=== PATIENT | female | born 1950 | race Caucasian/White ===

== ENCOUNTER 2018-09-29 02:14 | Inpatient (IN) | payer MEDICARE ==
[2018-09-29] MEDS: ONDANSETRON 4 MG INJ IV ×2 (02:47→04:04)
[2018-09-29] MEDS: morphine 4 MG/ML VIAL IV (02:47)
[2018-09-29 02:49] LABS: ADD MAN DIFF? NO
[2018-09-29 02:50] LABS: BASOPHILS % 1.2 % (0.0-2.0); EOSINOPHILS # 0.1 10^3/ul (0.0-0.5); EOSINOPHILS % 2.8 % (0.0-7.0); HEMATOCRIT 36.8 % (37.0-47.0); HEMOGLOBIN 11.7 g/dl (12.0-16.0); LYMPHOCYTES # 1.6 10^3/ul (0.8-2.9); MEAN CORPUSCULAR HEMOGLOBIN 27.4 pg (29.0-33.0); MEAN CORPUSCULAR HGB CONC 31.8 g/dl (32.0-37.0); MEAN CORPUSCULAR VOLUME 86.2 fl (82.0-101.0); MEAN PLATELET VOLUME 9.5 fl (7.4-10.4); MONOCYTE # 0.4 10^3/ul (0.3-0.9); MONOCYTES % 11.7 % (0.0-11.0); NEUTROPHIL # 1.1 10^3/ul (1.6-7.5); PLATELET COUNT 261 10^3/UL (140-415); RED BLOOD COUNT 4.27 10^6/ul (4.20-5.40); RED CELL DISTRIBUTION WIDTH 15.7 % (11.5-14.5)
[2018-09-29 02:50] LABS: WHITE BLOOD COUNT 3.3 10^3/ul (4.8-10.8)
[2018-09-29 03:10] LABS: INR 0.84; PROTIME 11.6 Sec (11.9-14.9); PT RATIO 0.9
[2018-09-29 03:14] LABS: ALANINE AMINOTRANSFERASE 70 IU/L (13-69); ALBUMIN 3.8 g/dl (3.3-4.9); ALBUMIN/GLOBULIN RATIO 1.15; ALKALINE PHOSPHATASE 142 IU/L (42-121); ANION GAP 7 (5-13); ASPARTATE AMINO TRANSFERASE 42 IU/L (15-46); BILIRUBIN,INDIRECT 0.2 mg/dl (0-1.1); BILIRUBIN,TOTAL 0.2 mg/dl (0.2-1.3); BLOOD UREA NITROGEN 17 mg/dl (7-20); CARBON DIOXIDE 27 mmol/L (21-31); CHLORIDE 108 mmol/L (97-110); CREATININE 0.82 mg/dl (0.44-1.00); Estimated GFR > 60 mL/min (>60); GLUCOSE 92 mg/dl (70-220); POTASSIUM 4.2 mmol/L (3.5-5.1); SODIUM 142 mmol/L (135-144); TOTAL PROTEIN 7.1 g/dl (6.1-8.1)
[2018-09-29 03:24] LABS: TROPONIN-I < 0.012 ng/ml (0.000-0.120)
[2018-09-29] MEDS: KETAMINE HCL (50 MG/ML) 1ml syringe IV (04:05)
[2018-09-29] MEDS: LORAZEPAM 2 MG INJ IV ×3 (04:35→23:52)
[2018-09-29] MEDS ORDERED: ONDANSETRON 4 MG INJ IV (06:00)
[2018-09-29] MEDS ORDERED: ACETAMINOPHEN 325 MG TAB PO ×2 (06:00)
[2018-09-29] MEDS: HYDROCODONE/APAP (5/325) TAB PO ×4 (06:26→23:00)
[2018-09-29] MEDS: HYDROmorphONE 0.5 MG/0.5 ML SYG IV ×4 (07:49→21:31)
[2018-09-29] MEDS: ENOXAPARIN 40 MG/0.4 ML SYG SC (09:08)
[2018-09-29] MEDS: SOD CHLORIDE 0.9% 1,000 ML IV (15:26)
[2018-09-30 03:33] LABS: AMPHETAMINE/METHAMPHETAMINE Negative (NEGATIVE); BARBITURATES Negative (NEGATIVE); CANNABINOIDS Negative (NEGATIVE); COCAINE Negative (NEGATIVE)
[2018-09-30 03:34] LABS: BENZODIAZEPINES Positive (NEGATIVE); OPIATES Positive (NEGATIVE)
[2018-09-30] MEDS: HYDROmorphONE 0.5 MG/0.5 ML SYG IV ×4 (04:30→19:57)
[2018-09-30 05:40] LABS: ADD MAN DIFF? NO
[2018-09-30 05:46] LABS: BASOPHILS % 1.2 % (0.0-2.0); EOSINOPHILS # 0.1 10^3/ul (0.0-0.5); EOSINOPHILS % 2.1 % (0.0-7.0); HEMATOCRIT 31.7 % (37.0-47.0); HEMOGLOBIN 10.2 g/dl (12.0-16.0); LYMPHOCYTES # 1.5 10^3/ul (0.8-2.9); LYMPHOCYTES % 44.6 % (15.0-51.0); MEAN CORPUSCULAR HEMOGLOBIN 27.9 pg (29.0-33.0); MEAN CORPUSCULAR HGB CONC 32.2 g/dl (32.0-37.0); MEAN CORPUSCULAR VOLUME 86.8 fl (82.0-101.0); MEAN PLATELET VOLUME 9.8 fl (7.4-10.4); MONOCYTE # 0.4 10^3/ul (0.3-0.9); MONOCYTES % 11.9 % (0.0-11.0); NEUTROPHIL # 1.3 10^3/ul (1.6-7.5); NEUTROPHILS % 40.2 % (39.0-77.0); PLATELET COUNT 244 10^3/UL (140-415); RED BLOOD COUNT 3.65 10^6/ul (4.20-5.40); RED CELL DISTRIBUTION WIDTH 15.7 % (11.5-14.5)
[2018-09-30 05:46] LABS: WHITE BLOOD COUNT 3.3 10^3/ul (4.8-10.8)
[2018-09-30 06:24] LABS: ALANINE AMINOTRANSFERASE 61 IU/L (13-69); ALBUMIN 3.1 g/dl (3.3-4.9); ALBUMIN/GLOBULIN RATIO 1.24; ALKALINE PHOSPHATASE 116 IU/L (42-121); ANION GAP 7 (5-13); ASPARTATE AMINO TRANSFERASE 37 IU/L (15-46); BILIRUBIN,INDIRECT 0.2 mg/dl (0-1.1); BILIRUBIN,TOTAL 0.2 mg/dl (0.2-1.3); BLOOD UREA NITROGEN 15 mg/dl (7-20); CALCIUM 9.7 mg/dl (8.4-10.2); CARBON DIOXIDE 28 mmol/L (21-31); CHLORIDE 107 mmol/L (97-110); CHOL/HDL RATIO 4.8 RATIO; CHOLESTEROL 202 mg/dl (100-200); CREATININE 0.82 mg/dl (0.44-1.00); Estimated GFR > 60 mL/min (>60); GLUCOSE 92 mg/dl (70-220); HDL CHOLESTEROL 42 mg/dl (35-98); LDL CHOLESTEROL,CALCULATED 128 mg/dl; MAGNESIUM 1.8 mg/dl (1.7-2.5); POTASSIUM 4.2 mmol/L (3.5-5.1); SODIUM 142 mmol/L (135-144); TOTAL PROTEIN 5.6 g/dl (6.1-8.1); TRIGLYCERIDES 159 mg/dl (0-149)
[2018-09-30] MEDS: HYDROCODONE/APAP (5/325) TAB PO ×3 (06:40→18:08)
[2018-09-30 08:22] LABS: HEMOGLOBIN A1C 5.2 % (0-5.9)
[2018-09-30] MEDS: ENOXAPARIN 40 MG/0.4 ML SYG SC (08:37)
[2018-09-30] MEDS: LORAZEPAM 2 MG INJ IV (11:12)
[2018-09-30] MEDS ORDERED: BACLOFEN 10 MG TAB (19:51)
[2018-09-30] MEDS: BACLOFEN 10 MG TAB PO (20:00)
[2018-10-01] MEDS: HYDROCODONE/APAP (5/325) TAB PO ×4 (00:09→17:49)
[2018-10-01] MEDS: HYDROmorphONE 0.5 MG/0.5 ML SYG IV ×4 (08:10→20:54)
[2018-10-01] MEDS: BACLOFEN 10 MG TAB PO ×3 (08:10→20:53)
[2018-10-01] MEDS: ENOXAPARIN 40 MG/0.4 ML SYG SC (08:11)
[2018-10-01] MEDS: NACL 0.9% 3 ML SYG IV (20:54)
[2018-10-02 05:33] LABS: ADD MAN DIFF? NO
[2018-10-02 05:35] LABS: WHITE BLOOD COUNT 3.8 10^3/ul (4.8-10.8)
[2018-10-02 05:35] LABS: BASOPHILS % 0.8 % (0.0-2.0); EOSINOPHILS # 0.1 10^3/ul (0.0-0.5); EOSINOPHILS % 2.7 % (0.0-7.0); HEMATOCRIT 33.1 % (37.0-47.0); HEMOGLOBIN 10.9 g/dl (12.0-16.0); LYMPHOCYTES # 1.4 10^3/ul (0.8-2.9); MEAN CORPUSCULAR HGB CONC 32.9 g/dl (32.0-37.0); MEAN CORPUSCULAR VOLUME 85.1 fl (82.0-101.0); MEAN PLATELET VOLUME 9.4 fl (7.4-10.4); MONOCYTE # 0.4 10^3/ul (0.3-0.9); MONOCYTES % 11.7 % (0.0-11.0); NEUTROPHIL # 1.8 10^3/ul (1.6-7.5); NEUTROPHILS % 46.5 % (39.0-77.0); PLATELET COUNT 283 10^3/UL (140-415); RED BLOOD COUNT 3.89 10^6/ul (4.20-5.40); RED CELL DISTRIBUTION WIDTH 15.7 % (11.5-14.5)
[2018-10-02 06:14] LABS: ANION GAP 7 (5-13); BLOOD UREA NITROGEN 15 mg/dl (7-20); CALCIUM 10.1 mg/dl (8.4-10.2); CARBON DIOXIDE 26 mmol/L (21-31); CHLORIDE 109 mmol/L (97-110); CREATININE 0.79 mg/dl (0.44-1.00); Estimated GFR > 60 mL/min (>60); GLUCOSE 99 mg/dl (70-220); MAGNESIUM 1.8 mg/dl (1.7-2.5); PHOSPHORUS 4.6 mg/dl (2.5-4.9); POTASSIUM 3.8 mmol/L (3.5-5.1); SODIUM 142 mmol/L (135-144)
[2018-10-02] MEDS: HYDROmorphONE 0.5 MG/0.5 ML SYG IV ×4 (07:04→21:38)
[2018-10-02] MEDS: BACLOFEN 10 MG TAB PO ×3 (09:04→21:37)
[2018-10-02] MEDS: HYDROCODONE/APAP (5/325) TAB PO (09:04)
[2018-10-02] MEDS: ENOXAPARIN 40 MG/0.4 ML SYG SC (09:05)
[2018-10-02] MEDS: LORAZEPAM 2 MG INJ IV (16:05)
[2018-10-02] MEDS: BUSPIRONE 5 MG TAB NGT (21:37)
[2018-10-02] MEDS: DULOXETINE 30 MG CAP DR PO (21:37)
[2018-10-03] MEDS: HYDROmorphONE 0.5 MG/0.5 ML SYG IV ×4 (01:42→20:44)
[2018-10-03] MEDS: ONDANSETRON 4 MG INJ IV (01:49)
[2018-10-03] MEDS: DULOXETINE 30 MG CAP DR PO ×2 (08:07→20:15)
[2018-10-03] MEDS: BACLOFEN 10 MG TAB PO ×3 (08:07→20:15)
[2018-10-03] MEDS: BUSPIRONE 5 MG TAB NGT ×2 (08:07→20:15)
[2018-10-03] MEDS: ENOXAPARIN 40 MG/0.4 ML SYG SC (08:10)
[2018-10-03 20:32] LABS: C-REACTIVE PROTEIN 0.7 mg/dl (0.0-0.9)
[2018-10-04] MEDS: HYDROmorphONE 0.5 MG/0.5 ML SYG IV ×3 (07:46→20:52)
[2018-10-04] MEDS: BUSPIRONE 5 MG TAB NGT ×2 (08:24→20:52)
[2018-10-04] MEDS: ENOXAPARIN 40 MG/0.4 ML SYG SC (08:24)
[2018-10-04] MEDS: DULOXETINE 30 MG CAP DR PO ×2 (08:24→20:52)
[2018-10-04] MEDS: NACL 0.9% 3 ML SYG IV (08:25)
[2018-10-04] MEDS: BACLOFEN 10 MG TAB PO ×3 (08:25→20:52)
[2018-10-04] MEDS: HYDROCODONE/APAP (5/325) TAB PO ×2 (08:25→17:48)
[2018-10-04] MEDS: clonAZEPAM 0.5 MG TAB PO (09:40)
[2018-10-05] MEDS: HYDROCODONE/APAP (5/325) TAB PO (00:11)
[2018-10-05] MEDS: HYDROmorphONE 0.5 MG/0.5 ML SYG IV ×5 (01:14→21:35)
[2018-10-05] MEDS: DULOXETINE 30 MG CAP DR PO ×2 (08:04→21:04)
[2018-10-05] MEDS: BACLOFEN 10 MG TAB PO ×3 (08:04→21:04)
[2018-10-05] MEDS: ENOXAPARIN 40 MG/0.4 ML SYG SC (08:04)
[2018-10-05] MEDS: BUSPIRONE 5 MG TAB NGT ×2 (08:04→21:04)
[2018-10-05] MEDS: clonAZEPAM 0.5 MG TAB PO (22:38)
[2018-10-06] MEDS: HYDROmorphONE 0.5 MG/0.5 ML SYG IV ×5 (04:57→23:54)
[2018-10-06 06:31] LABS: IRON 48 ug/dl (35-150)
[2018-10-06 06:40] LABS: % IRON SATURATION 13 % SAT (22-52); TOTAL IRON BINDING CAPACITY 366 ug/dl (241-421)
[2018-10-06] MEDS: DULOXETINE 30 MG CAP DR PO ×2 (09:11→20:48)
[2018-10-06] MEDS: BUSPIRONE 5 MG TAB NGT ×2 (09:11→20:48)
[2018-10-06] MEDS: BACLOFEN 10 MG TAB PO ×3 (09:11→20:48)
[2018-10-06] MEDS: ENOXAPARIN 40 MG/0.4 ML SYG SC (09:12)
[2018-10-07] MEDS: BUSPIRONE 5 MG TAB NGT ×2 (09:05→20:59)
[2018-10-07] MEDS: DULOXETINE 30 MG CAP DR PO ×2 (09:06→20:59)
[2018-10-07] MEDS: BACLOFEN 10 MG TAB PO ×3 (09:06→20:59)
[2018-10-07] MEDS: HYDROmorphONE 0.5 MG/0.5 ML SYG IV ×4 (09:06→22:26)
[2018-10-07] MEDS: ENOXAPARIN 40 MG/0.4 ML SYG SC (09:07)
[2018-10-08] MEDS: HYDROmorphONE 0.5 MG/0.5 ML SYG IV ×5 (05:24→22:12)
[2018-10-08] MEDS: ENOXAPARIN 40 MG/0.4 ML SYG SC (09:00)
[2018-10-08] MEDS: DULOXETINE 30 MG CAP DR PO ×2 (09:31→20:12)
[2018-10-08] MEDS: BACLOFEN 10 MG TAB PO ×3 (09:31→20:12)
[2018-10-08] MEDS: BUSPIRONE 5 MG TAB NGT ×2 (09:31→20:13)
[2018-10-09] MEDS: HYDROmorphONE 0.5 MG/0.5 ML SYG IV ×4 (07:50→19:48)
[2018-10-09] MEDS: HYDROCODONE/APAP (5/325) TAB PO (08:04)
[2018-10-09] MEDS: ENOXAPARIN 40 MG/0.4 ML SYG SC (09:00)
[2018-10-09] MEDS: BACLOFEN 10 MG TAB PO ×3 (09:04→20:13)
[2018-10-09] MEDS: DULOXETINE 30 MG CAP DR PO ×2 (09:04→20:13)
[2018-10-09] MEDS: BUSPIRONE 5 MG TAB PO ×2 (09:04→20:13)
[2018-10-09] MEDS: DOCUSATE SODIUM 100 MG CAP PO (14:26)
[2018-10-09 14:36] LABS: ADD MAN DIFF? NO
[2018-10-09 14:38] LABS: BASOPHILS % 0.7 % (0.0-2.0); EOSINOPHILS # 0.1 10^3/ul (0.0-0.5); EOSINOPHILS % 2.2 % (0.0-7.0); HEMATOCRIT 38.2 % (42.0-52.0); HEMOGLOBIN 12.2 g/dl (14.0-18.0); LYMPHOCYTES # 1.6 10^3/ul (0.8-2.9); LYMPHOCYTES % 35.8 % (15.0-51.0); MEAN CORPUSCULAR HEMOGLOBIN 27.6 pg (29.0-33.0); MEAN CORPUSCULAR HGB CONC 31.9 g/dl (32.0-37.0); MEAN CORPUSCULAR VOLUME 86.4 fl (82.0-101.0); MEAN PLATELET VOLUME 9.3 fl (7.4-10.4); MONOCYTE # 0.4 10^3/ul (0.3-0.9); NEUTROPHIL # 2.4 10^3/ul (1.6-7.5); NEUTROPHILS % 52.1 % (39.0-77.0); PLATELET COUNT 346 10^3/UL (140-415); RED BLOOD COUNT 4.42 10^6/ul (4.70-6.10); RED CELL DISTRIBUTION WIDTH 16.1 % (11.5-14.5)
[2018-10-09 14:38] LABS: WHITE BLOOD COUNT 4.6 10^3/ul (4.8-10.8)
[2018-10-09 14:58] LABS: INR 0.99; PARTIAL THROMBOPLASTIN TIME 36.8 Sec (23.0-35.0); PROTIME 13.2 Sec (11.9-14.9)
[2018-10-09 14:59] LABS: ANION GAP 8 (5-13); BLOOD UREA NITROGEN 13 mg/dl (7-20); CARBON DIOXIDE 25 mmol/L (21-31); CHLORIDE 106 mmol/L (97-110); CREATININE 0.67 mg/dl (0.61-1.24); Estimated GFR > 60 mL/min (>60); GLUCOSE 109 mg/dl (70-220); SODIUM 139 mmol/L (135-144)
[2018-10-09] MEDS: clonAZEPAM 0.5 MG TAB PO (22:00)
[2018-10-10] MEDS: HYDROmorphONE 0.5 MG/0.5 ML SYG IV ×3 (01:21→22:04)
[2018-10-10] MEDS ORDERED: GELATIN SIZE 100 SPONGE (07:07)
[2018-10-10] MEDS ORDERED: THROMBIN 5000 UNIT VIAL (07:08)
[2018-10-10] MEDS ORDERED: POLYMYXIN/BACITRACIN 1L IRRIG (07:10)
[2018-10-10] MEDS ORDERED: NEOSTIGMINE 3 MG/3 ML SYRINGE (07:46)
[2018-10-10] MEDS ORDERED: ROCURONIUM 50 MG INJ (07:46)
[2018-10-10] MEDS ORDERED: CEFAZOLIN 1 GM INJ (07:46)
[2018-10-10] MEDS ORDERED: PROPOFOL 20 ML (07:46)
[2018-10-10] MEDS ORDERED: GLYCOPYRROLATE 0.4 MG INJ (07:46)
[2018-10-10] MEDS ORDERED: DEXAMETHASONE 4 MG/ML 5 ML INJ (07:47)
[2018-10-10] MEDS ORDERED: ONDANSETRON 4 MG INJ (07:47)
[2018-10-10] MEDS ORDERED: MIDAZOLAM 1 MG/ML 2 ML INJ ×2 (07:47→07:49)
[2018-10-10] MEDS ORDERED: FENTAnyl 50 MCG/ML VIAL ×2 (07:47→11:34)
[2018-10-10] MEDS ORDERED: HYDROmorphONE 1 MG/5 ML IV SYRINGE IV (08:30)
[2018-10-10] MEDS ORDERED: OXYCODONE/ACETAMINOPHEN (5/325) TAB PO ×2 (08:30)
[2018-10-10] MEDS ORDERED: IPRATROPIUM (NEB) 0.5 MG/2.5 ML AMP HHN (08:30)
[2018-10-10] MEDS ORDERED: MIDAZOLAM 1 MG/ML 2 ML INJ IV (08:30)
[2018-10-10] MEDS ORDERED: FENTAnyl 50 MCG/ML VIAL IV (08:30)
[2018-10-10] MEDS ORDERED: LABETALOL HCL 20MG INJ IV (08:30)
[2018-10-10] MEDS ORDERED: ALBUTEROL 0.083% (NEB) 2.5 MG/3 ML AMP HHN (08:30)
[2018-10-10] MEDS ORDERED: hydrALAzine 20 MG INJ IV (08:30)
[2018-10-10] MEDS ORDERED: TRIMETHOBENZAMIDE 100 MG/ML VIAL IM (08:30)
[2018-10-10] MEDS ORDERED: EPHEDrine 25 MG/5 ML SYG IV (08:30)
[2018-10-10] MEDS ORDERED: DIPHENHYDRAMINE 50 MG INJ IV (08:30)
[2018-10-10] MEDS: BACLOFEN 10 MG TAB PO ×3 (09:00→20:37)
[2018-10-10] MEDS: DULOXETINE 30 MG CAP DR PO ×2 (09:00→20:37)
[2018-10-10] MEDS: BUSPIRONE 5 MG TAB PO ×2 (09:00→20:37)
[2018-10-10] MEDS: THROMBIN 5000 UNIT VIAL TOP (10:00)
[2018-10-10] MEDS: SURGIFOAM POWDER 1 GM KIT MM (10:00)
[2018-10-10] MEDS ORDERED: SURGIFOAM POWDER 1 GM KIT (10:04)
[2018-10-10] MEDS ORDERED: SUGAMMADEX SODIUM 200 MG/2 ML VIAL IV (10:46)
[2018-10-10] MEDS: ONDANSETRON 4 MG INJ IV (11:37)
[2018-10-10] MEDS: FENTAnyl 50 MCG/ML VIAL IV ×3 (11:38→11:53)
[2018-10-10] MEDS: HYDROmorphONE 1 MG/5 ML IV SYRINGE IV ×3 (11:38→11:53)
[2018-10-10] MEDS: MEPERIDINE 25 MG INJ IV (11:52)
[2018-10-10] MEDS: HYDROCODONE/APAP (5/325) TAB PO ×2 (14:15→20:38)
[2018-10-10] MEDS: CEFAZOLIN 1 GM/50 ML (PMX) 50 ML IVPB ×2 (14:17→21:05)
[2018-10-10] MEDS: LORATADINE 10 MG TAB PO (21:05)
[2018-10-11] MEDS: HYDROmorphONE 0.5 MG/0.5 ML SYG IV ×3 (02:54→13:52)
[2018-10-11] MEDS: CEFAZOLIN 1 GM/50 ML (PMX) 50 ML IVPB ×3 (05:07→22:00)
[2018-10-11] MEDS: HYDROCODONE/APAP (5/325) TAB PO ×3 (05:14→18:22)
[2018-10-11] MEDS: BUSPIRONE 5 MG TAB PO ×2 (08:45→20:17)
[2018-10-11] MEDS: DULOXETINE 30 MG CAP DR PO ×2 (08:45→20:17)
[2018-10-11] MEDS: LORATADINE 10 MG TAB PO (08:45)
[2018-10-11] MEDS: BACLOFEN 10 MG TAB PO ×3 (08:45→20:17)
[2018-10-11 12:09] LABS: ADD MAN DIFF? NO
[2018-10-11 12:13] LABS: WHITE BLOOD COUNT 8.3 10^3/ul (4.8-10.8)
[2018-10-11 12:13] LABS: BASOPHILS % 0.2 % (0.0-2.0); EOSINOPHILS % 0.2 % (0.0-7.0); HEMATOCRIT 31.4 % (37.0-47.0); HEMOGLOBIN 9.8 g/dl (12.0-16.0); LYMPHOCYTES # 2.1 10^3/ul (0.8-2.9); LYMPHOCYTES % 25.8 % (15.0-51.0); MEAN CORPUSCULAR HEMOGLOBIN 27.5 pg (29.0-33.0); MEAN CORPUSCULAR HGB CONC 31.2 g/dl (32.0-37.0); MEAN PLATELET VOLUME 10.1 fl (7.4-10.4); MONOCYTE # 0.6 10^3/ul (0.3-0.9); MONOCYTES % 7.3 % (0.0-11.0); NEUTROPHIL # 5.5 10^3/ul (1.6-7.5); NEUTROPHILS % 66.1 % (39.0-77.0); PLATELET COUNT 342 10^3/UL (140-415); RED BLOOD COUNT 3.57 10^6/ul (4.20-5.40); RED CELL DISTRIBUTION WIDTH 16.5 % (11.5-14.5)
[2018-10-11] MEDS: DOCUSATE SODIUM 100 MG CAP PO (12:30)
[2018-10-11 12:40] LABS: ANION GAP 6 (5-13); BLOOD UREA NITROGEN 10 mg/dl (7-20); CARBON DIOXIDE 30 mmol/L (21-31); CHLORIDE 104 mmol/L (97-110); CREATININE 0.74 mg/dl (0.44-1.00); Estimated GFR > 60 mL/min (>60); GLUCOSE 94 mg/dl (70-220); MAGNESIUM 1.6 mg/dl (1.7-2.5); PHOSPHORUS 3.2 mg/dl (2.5-4.9); POTASSIUM 4.4 mmol/L (3.5-5.1); SODIUM 140 mmol/L (135-144)
[2018-10-11] MEDS: BISACODYL (EC) 5 MG TAB PO (13:52)
[2018-10-11] MEDS: MAGNESIUM SULFATE 2 GM/50 ML 50 ML IVPB (14:48)
[2018-10-12] MEDS: HYDROCODONE/APAP (5/325) TAB PO (00:59)
[2018-10-12] MEDS: LIDOCAINE 5% PATCH TD (03:10)
[2018-10-12] MEDS: clonAZEPAM 0.5 MG TAB PO (03:15)
[2018-10-12] MEDS: HYDROmorphONE 0.5 MG/0.5 ML SYG IV ×2 (04:43→10:11)
[2018-10-12] MEDS: CEFAZOLIN 1 GM/50 ML (PMX) 50 ML IVPB ×3 (06:24→23:42)
[2018-10-12] MEDS: LORATADINE 10 MG TAB PO (08:23)
[2018-10-12] MEDS: DULOXETINE 30 MG CAP DR PO ×2 (08:23→21:57)
[2018-10-12] MEDS: BACLOFEN 10 MG TAB PO ×3 (08:23→21:57)
[2018-10-12] MEDS: BUSPIRONE 5 MG TAB PO ×2 (08:23→21:57)
[2018-10-12] MEDS: LACTATED RINGER'S 500 ML IV (15:42)
[2018-10-12 20:17] LABS: ADD MAN DIFF? NO
[2018-10-12 20:43] LABS: RED BLOOD COUNT 3.42 10^6/ul (4.20-5.40)
[2018-10-12 20:43] LABS: WHITE BLOOD COUNT 5.7 10^3/ul (4.8-10.8)
[2018-10-12 20:44] LABS: BASOPHILS % 0.9 % (0.0-2.0); HEMATOCRIT 29.7 % (37.0-47.0); HEMOGLOBIN 9.6 g/dl (12.0-16.0); MEAN CORPUSCULAR HEMOGLOBIN 28.1 pg (29.0-33.0); MEAN CORPUSCULAR HGB CONC 32.3 g/dl (32.0-37.0); MEAN CORPUSCULAR VOLUME 86.8 fl (82.0-101.0); MEAN PLATELET VOLUME 10.3 fl (7.4-10.4); MONOCYTES % 9.4 % (0.0-11.0); NEUTROPHILS % 63.5 % (39.0-77.0); PLATELET COUNT 325 10^3/UL (140-415); RED CELL DISTRIBUTION WIDTH 16.5 % (11.5-14.5)
[2018-10-12 20:45] LABS: BASOPHIL # 0.1 10^3/ul (0.0-0.1); EOSINOPHILS # 0.1 10^3/ul (0.0-0.5); LYMPHOCYTES # 1.4 10^3/ul (0.8-2.9); MONOCYTE # 0.5 10^3/ul (0.3-0.9); NEUTROPHIL # 3.6 10^3/ul (1.6-7.5)
[2018-10-12] MEDS: POLYETHYLENE GLYCOL 17 GM PACKET GTB (21:57)
[2018-10-13] MEDS: HYDROmorphONE 2 MG TAB PO ×3 (03:29→12:28)
[2018-10-13] MEDS: HYDROCODONE/APAP (5/325) TAB PO ×3 (04:19→12:28)
[2018-10-13] MEDS: CEFAZOLIN 1 GM/50 ML (PMX) 50 ML IVPB ×2 (05:41→14:00)
[2018-10-13] MEDS: DULOXETINE 30 MG CAP DR PO (09:25)
[2018-10-13] MEDS: LORATADINE 10 MG TAB PO (09:25)
[2018-10-13] MEDS: BACLOFEN 10 MG TAB PO ×2 (09:25→12:28)
[2018-10-13] MEDS: POLYETHYLENE GLYCOL 17 GM PACKET GTB (09:25)
[2018-10-13] MEDS: BUSPIRONE 5 MG TAB PO (09:26)
== END 2018-10-13 15:40 | disposition home health service (06) | DRG 460 ==
LOC: 5EC 09-30 01:55 → E/R 02:14 → 5EC 09-30 02:00 → PP2 05:59
PROC: 01NB0ZZ Release Lumbar Nerve, Open Approach (ICD-10-PCS; principal; 2018-10-10 07:30)
PROC: 0SG00K1 Fusion of Lumbar Vertebral Joint with Nonautologous Tissue Substitute, Posterior Approach, Posterior Column, Open Approach (ICD-10-PCS; 2018-10-10 07:30)
DX: T84.028A Dislocation of other internal joint prosthesis, initial encounter (principal); G89.18 Other acute postprocedural pain; M54.9 Dorsalgia, unspecified; F41.9 Anxiety disorder, unspecified; F31.9 Bipolar disorder, unspecified; Z87.891 Personal history of nicotine dependence
CPT/HCPCS: 36415; 71045; 72100; 72110; 72131; 72158; 78306; 80048; 80053; 80061; 80307; 83036; 83540; 83735; 84100; 84443; 84484; 85025; 85610; 85730; 86140; 87081; 88300; 93005; 96374; 96375; 96376; 97110; 97116; 97161; 97164; 97530; 99285-25; A9503; G0378